=== PATIENT | male | born 1950 | race Caucasian/White ===

== ENCOUNTER → 2018-01-27 09:57 | Outpatient (CLI) | payer MEDICARE, OTHER, SELFPAY ==
--- NOTE | 2018-01-27 | DI.ECHO.S_ITS ---
[facility] +---------+ : : [address] : [place] : : : : [id number] : : : : Phone: [phone]---------+ Echocardiogram Report + + :Name: ARSENIO SOARES Study Date: 01/27/2018 Height: 72 in : :[facility] Weight: 250 lb: : Gender: Male BSA: 2.3 m2 : :: 1950 Age: 68 yrs : :Reason For Study: HTN : : Performed By: Indy Pan : :Referring: JEN RAY : + + Interpretation Summary The echocardiogram is within normal limits. Procedure: A two-dimensional transthoracic echocardiogram with color flow and Doppler was performed. The study quality was technically adequate. There is no prior echocardiogram noted for this patient. The heart rate ranged between 52-57 bpm during the study. Left Ventricle: The left ventricle is normal in size, wall thickness, and systolic function without any focal wall motion abnormalities. The ejection fraction is estimated to be 60-65%. Left ventricular wall motion is normal. Right Ventricle: The right ventricle is normal in size and function. Atria: The left atrium is mildly dilated. Right atrial size is normal. There is no Doppler evidence for an atrial septal defect. Mitral Valve: The mitral valve is normal in structure and function. There is trace mitral regurgitation. Aortic Valve: The aortic valve is normal in structure and function. Tricuspid Valve: The tricuspid valve is normal in structure and function. There is a trace or physiologic amount of tricuspid regurgitation. The right ventricular systolic pressure is estimated to be at least 27 mmHg based on an estimated right atrial pressure of 3 mm Hg. Pulmonic Valve: The pulmonic valve is not well seen, but is grossly normal. Great Vessels: The aortic root is normal size. The ascending aorta is at the upper limits of normal in size. The aortic arch is mildly enlarged. The pulmonary artery is normal size. The IVC is of normal diameter and collapses greater than 50% with a sniff. This suggests a low right atrial pressure of 3 mm Hg. Pericardium/ Pleura There is no pericardial effusion. There is no pleural effusion. MMode/2D Measurements & Calculations LVIDd: 4.9 cm LVOT diam: 2.3 cm LVIDs: 3.5 cm Ao root diam: 3.8 cm FS: 28.3 % asc Aorta Diam: 3.5 cm IVSd: 1.1 cm Ao Arch Diam (Prox Trans): 3.4 cm LVPWd: 1.0 cm LV dos santos. diameter/BSA (cm/m^2): 2.1 LV sys. diameter/BSA (cm/m^2): 1.5 LA A2 area: 24.9 cm2 RA long axis: 5.5 cm LA A4 area: 27.3 cm2 RA area: 20.6 cm2 LA length (vol): 6.6 cm RA vol: 65.8 ml LA vol: 88.1 ml RA : 28.1 ml/m2 LA vol index: 37.6 ml/m2 IVC diam: 2.0 cm RVD1 (basal): 3.4 cm TAPSE: 2.1 cm Doppler Measurements & Calculations Ao V2 max: 143.4 cm/sec LVOT Max Sergey: 121.0 cm/sec Ao V2 mean: 106.1 cm/sec LV V1 max P.9 mmHg Ao max P.2 mmHg LV V1 VTI: 27.5 cm Ao mean P.9 mmHg EDUARDA(I,D): 3.2 cm2 Ao V2 VTI: 34.1 cm EDUARDA(V,D): 3.4 cm2 sev ratio: 0.81 EDUARDA indexed to BSA (cm^2/m^2): 1.4 MV E max sergey: 76.8 cm/sec TR max sergey: 246.6 cm/sec MV A max sergey: 79.3 cm/sec TR max P.3 mmHg MV E/A: 0.97 Med Peak E' Sergey: 7.6 cm/sec E/E' med: 10.1 Lat Peak E' Sergey: 9.5 cm/sec E/E' lat: 8.1 E/e' average: 9.1 MV dec time: 0.23 sec Reading Physician:01:33 PM
== END ==
PROVIDERS: Family Provider Physician Assistant; PCP Physician Assistant; Visit Provider Physician Assistant
DX: I10 Essential (primary) hypertension (principal); E78.5 Hyperlipidemia, unspecified
CPT/HCPCS: 93306

== ENCOUNTER → 2019-06-16 13:07 | Outpatient (CLI) | payer MEDICARE, OTHER, SELFPAY ==
--- NOTE | 2019-06-16 | DI.RAD.S_ITS ---
PROCEDURE: XR CHEST 2V INDICATIONS: COUGH TECHNIQUE: 2 views of the chest were acquired. COMPARISON: None. FINDINGS: Surgical changes and devices: None. Lungs and pleura: Low lung volumes with scattered subsegmental atelectasis/scarring. No pleural effusions or pneumothorax. Mediastinum: Mediastinal contours are normal. Heart size is normal. Bones and chest wall: No suspicious bony abnormalities. Soft tissues appear unremarkable. IMPRESSION: Low lung volumes with scattered subsegmental atelectasis/scarring. No acute consolidation Dictated by: Jovanni Joya M.D. on 06/16/2019 at 14:44 Approved by: Jovanni Joya M.D. on 06/16/2019 at 14:45
== END ==
PROVIDERS: Family Provider Physician Assistant; PCP Physician Assistant; Referring Provider Physician Assistant; Visit Provider Physician Assistant
DX: R05 Cough (principal)
CPT/HCPCS: 71046

== ENCOUNTER → 2020-04-26 16:59 | Outpatient (CLI) | payer OTHER, MEDICARE, SELFPAY ==
[2020-04-26 19:07] LABS: Prostate Specific Antigen 2.29 ng/mL (0.10-4.00)
== END ==
PROVIDERS: Specialist; Family Provider Physician Assistant; PCP Family Medicine; Referring Provider Family Medicine; Visit Provider Family Medicine
DX: N40.1 Benign prostatic hyperplasia with lower urinary tract symptoms (principal); R97.20 Elevated prostate specific antigen [PSA]
CPT/HCPCS: 36415; 84153

== ENCOUNTER → 2021-03-11 13:09 | Outpatient (CLI) | payer OTHER, SELFPAY ==
[2021-03-11 15:24] LABS: Prostate Specific Antigen 3.21 ng/mL (0.10-4.00)
== END ==
PROVIDERS: Family Provider Physician Assistant; PCP Family Medicine; Referring Provider Specialist; Visit Provider Specialist
DX: R97.20 Elevated prostate specific antigen [PSA] (principal)
CPT/HCPCS: 36415; 84153

== ENCOUNTER → 2021-07-29 10:55 | Outpatient (CLI) | payer OTHER, SELFPAY ==
[2021-07-29 12:03] LABS: Add Manual Diff / Slide Review NO; Basophils Absolute Auto 0 /uL (0-100); Basophils Percent Auto 0.6 % (0-2); Eosinophils Absolute Auto 200 /uL (0-450); Eosinophils Percent Auto 3.9 % (2-4); Hematocrit 38.6 % (41-53); Hemoglobin 13.3 g/dL (13.5-17.5); Lymphocytes Absolute Auto 1300 /uL (1100-4500); Lymphocytes Percent Auto 28.6 % (25-40); Mean Corpuscular HGB Conc 34.4 % (30-36); Mean Corpuscular Hemoglobin 30.3 PG (26-34); Mean Corpuscular Volume 88.2 fL (80-100); Monocytes Absolute Auto 400 /uL (0-900); Monocytes Percent Auto 9.8 % (3-14); Neutrophils Absolute Auto 2600 /uL (1500-7000); Neutrophils Percent Auto 57.1 % (50-75); Platelet Count 194 X10^3/uL (150-400); Red Blood Cell Count 4.38 X10^6/uL (4.5-5.9); Red Cell Distribution Width 13.1 % (11.6-14.8); White Blood Cell Count 4.6 X10^3/uL (4.5-11.0)
[2021-07-29 12:56] LABS: Prostate Specific Antigen 2.85 ng/mL (0.10-4.00); Thyroid Stimulating Hormone 2.01 uIU/mL (0.47-4.68)
== END ==
PROVIDERS: Family Provider Physician Assistant; PCP Family Medicine; Visit Provider Specialist
DX: N40.1 Benign prostatic hyperplasia with lower urinary tract symptoms (principal); E03.9 Hypothyroidism, unspecified; R73.09 Other abnormal glucose; D64.9 Anemia, unspecified; N13.8 Other obstructive and reflux uropathy
CPT/HCPCS: 36415; 83036; 84153; 84443; 85025

== ENCOUNTER → 2022-01-08 09:19 | Outpatient (CLI) | payer OTHER, SELFPAY ==
--- NOTE | 2022-01-08 09:23 | DI.RAD.S_ITS ---
PROCEDURE: XR SHOULDER LT MIN 2V INDICATIONS: SHOULDER PAIN TECHNIQUE: 3 views of the shoulder were acquired. COMPARISON: None. FINDINGS: Bones: No acute fractures or dislocations. No suspicious bony lesions. Visualized ribs appear intact. Focal lucency at the greater tuberosity may be postsurgical in nature. Moderate degenerative changes are seen in the glenohumeral joint with inferior spurring. Possible prior acromioplasty without recurrent narrowing of the supraspinatus outlet. Soft tissues: No suspicious soft tissue calcifications. IMPRESSION: Moderate glenohumeral osteoarthrosis. No acute osseous abnormality. If the symptoms persist, consider cross sectional imaging such as MRI or CT for further assessment. Dictated by: Rigo Tavares M.D. on 01/08/2022 at 11:28 Approved by: Rigo Tavares M.D. on 01/08/2022 at 11:29
== END ==
PROVIDERS: Family Provider Physician Assistant; PCP Family Medicine; Referring Provider Nurse Practitioner Family; Visit Provider Nurse Practitioner Family
DX: M19.012 Primary osteoarthritis, left shoulder (principal); M25.512 Pain in left shoulder
CPT/HCPCS: 73030

== ENCOUNTER → 2022-05-01 16:22 | Outpatient (CLI) | payer OTHER, SELFPAY ==
--- NOTE | 2022-05-01 | DI.MRI.S_ITS ---
PROCEDURE: MR HEAD/BRAIN WO CON INDICATIONS: MIGRAINE TECHNIQUE: Non-contrast axial T1 spin echo, axial T2 fast spin echo, sagittal and axial FLAIR, coronal T2 fast spin echo, axial gradient echo, axial diffusion and ADC through the brain. COMPARISON: None. FINDINGS: Image quality: Excellent. CSF spaces: Ventricles appear symmetric in size and shape. Basal cisterns are patent. No extra-axial fluid collections. Brain: No intracranial bleeds or mass effects. There is cerebral volume loss for age. There are periventricular and deep white matter chronic small vessel ischemic changes. Brainstem appears normal. Diffusion-weighted images show no acute ischemic insults. No chronic ischemic insults. Normal intravascular flow voids are present. Skull and face: Calvarial bone marrow is normal in signal. Orbits are normal. Sinuses: Sinuses demonstrate mild pansinus mucosal thickening. No fluid levels. IMPRESSION: 1. No acute intracranial process. 2. Mild atrophy and chronic microvascular ischemic changes. 3. Pansinus mucosal thickening. Dictated by: Radha Castanon M.D. on 05/04/2022 at 11:49 Approved by: Radha Castanon M.D. on 05/04/2022 at 11:50
== END ==
PROVIDERS: Family Provider Physician Assistant; PCP Family Medicine; Referring Provider Nurse Practitioner Family; Visit Provider Nurse Practitioner Family
DX: G43.909 Migraine, unspecified, not intractable, without status migrainosus (principal)
CPT/HCPCS: 70551

== ENCOUNTER → 2022-09-22 16:53 | Outpatient (CLI) | payer OTHER, SELFPAY ==
[2022-09-22 18:13] LABS: Prostate Specific Antigen 2.23 ng/mL (0.10-4.00)
== END ==
PROVIDERS: Family Provider Physician Assistant; PCP Nurse Practitioner Family; Referring Provider Specialist; Visit Provider Specialist
DX: N40.1 Benign prostatic hyperplasia with lower urinary tract symptoms (principal); N13.8 Other obstructive and reflux uropathy
CPT/HCPCS: 36415; 84153

== ENCOUNTER → 2023-02-10 15:30 | Outpatient (CLI) | payer OTHER, SELFPAY ==
--- NOTE | 2023-02-10 15:34 | DI.RAD.S_ITS ---
PROCEDURE: XR HAND LT MIN 3V INDICATIONS: PAIN IN LT WRIST TECHNIQUE: 3 views of the hand(s) acquired. COMPARISON: None. FINDINGS: Bones: No fractures or dislocations. Mild degenerative changes of the interphalangeal joints and 1st CMC joint. Carpal bones are normally aligned. No suspicious bony lesions. Soft tissues: No suspicious soft tissue calcifications. IMPRESSION: Mild degenerative changes. No acute osseous abnormalities. Dictated by: Placido Beal M.D. on 02/10/2023 at 16:56 Approved by: Placido Beal M.D. on 02/10/2023 at 16:56
--- NOTE | 2023-02-10 15:34 | DI.RAD.S_ITS ---
PROCEDURE: XR WRIST LT MIN 3V INDICATIONS: PAIN IN LT WRIST TECHNIQUE: 4 views of the wrist were acquired. COMPARISON: None. FINDINGS: Bones: No fractures or dislocations. No suspicious bony lesions. Scaphoid view: No fracture. Soft tissues: No suspicious soft tissue calcifications. IMPRESSION: No acute osseous abnormality. If pain persists with conservative management, consider repeat x-ray in 10-14 days or cross-sectional imaging. Dictated by: Placido Beal M.D. on 02/10/2023 at 16:57 Approved by: Placido Beal M.D. on 02/10/2023 at 16:57
== END ==
PROVIDERS: Family Provider Physician Assistant; PCP Nurse Practitioner Family; Referring Provider Nurse Practitioner Family; Visit Provider Nurse Practitioner Family
DX: M25.532 Pain in left wrist (principal)
CPT/HCPCS: 73110; 73130

== ENCOUNTER 2023-08-05 09:34 | Day surgery (SDC) | payer OTHER, SELFPAY ==
[2023-07-29 08:36] VITALS: BMI 39.8
--- NOTE | 2023-08-05 09:38 | PM.HP.1 ---
History of Present Illness History of Present Illness Date Patient Seen: 08/05/23 Time Patient Seen: 10:00 Chief complaint: Left Carpal Tunnel Release Narrative: 73-year-old gentleman with left carpal tunnel that has been causing him pain and dysfunction for quite some time. Patient had EMG studies positive for carpal tunnel. Due to the continued symptoms, patient is interested in surgery [facility] Medical History HLD (hyperlipidemia) History of UTI BPH w urinary obs/LUTS Thyroid disease HTN (hypertension) Surgical History H/O hernia repair Social History marital status: household members: spouse Smoking Status: Never smoker alcohol intake: never caffeine: No Meds Home Medications and Allergies Home Medications Medication Instructions Recorded Confirmed Type atorvastatin 40 mg tablet 40 mg PO DAILY 04/30/20 08/05/23 History hydrocodone 5 mg-acetaminophen 300 1 tab PO BID PRN Nasal Congestion 04/30/20 08/05/23 History mg tablet tamsulosin 0.4 mg capsule 0.4 mg PO BEDTIME #90 caps 10/08/22 08/05/23 Rx Allergies Allergy/AdvReac Type Severity Reaction Status Date / Time losartan [From Cozaar] Allergy Severe drop in Verified 10/06/22 08:59 blood pressure Exam Narrative Exam Narrative: Positive signs of carpal tunnel on exam. Decreased sensation in the median nerve distribution. Positive Tinel's, Durkan's, Phalen's test. Full range of motion of the fingers. Assessment & Plan Assessment & Plan narrative: Patient with left carpal tunnel with positive exam and EMG findings. Based on this fact, patient is interested in surgical treatment. Fully understands the risks and limitations associated with the procedure. The risk, benefits, alternatives, possible complications, operative course, and postop outcomes were discussed. Complications including but not limiting to bleeding, infection, fracture, nerve injury, continued pain postoperatively or instability postoperatively were discussed in detail. Medical complications including but not limited to deep venous thrombosis event, anesthesia complications with excessive bleeding, vascular events or cardiac events and other possible complications were discussed in detail. Need for postoperative rehabilitation and anticipated hospital stay and clinical course were discussed in detail. Patient acknowledges understanding and elects to proceed with surgery.
[2023-08-05 09:44] VITALS: TEMP 36.4
[2023-08-05] MEDS: ACETAMINOPHEN 325 MG TABLET 975 MG PO (09:44)
--- NOTE | 2023-08-05 09:45 | PM.PREOP ---
Pre-operative Note Interval Note History & Physical reviewed/Exam performed by Physician: Yes Changes to H&P: No
[2023-08-05 09:47] VITALS: BP 147/75; PULSE 58; RESP 16; TEMP 36.2; O2SAT 95; BMI 39.8
[2023-08-05] MEDS: LACTATED RINGERS 1,000 ML 42 ML IV (09:47)
[2023-08-05] MEDS: CEFAZOLIN 2 GM/100 ML PREMIX 100 ML IV (10:15)
--- NOTE | 2023-08-05 10:24 | SUR.OPER ---
Supine on padded OR bed, head on pillow, arms secured on padded arm boards at <90 degrees abduction, legs uncrossed, safety belt at thigh, tape over blanket over lower legs. Pillow under knees, gel pad under heels.
[2023-08-05] MEDS: BUPIVACAINE 0.5% W/ EPI (PF) 30 ML VIAL INJ (10:30)
--- NOTE | 2023-08-05 10:34 | PM.OP.1 ---
Operative Date/Time/Diagnoses Date of procedure: 08/05/23 Time of procedure: 10:15 Pre-op diagnosis: Left carpal tunnel Post-op diagnosis: same Procedure & Clinicians Procedure: Left carpal tunnel release Same procedure as scheduled: Yes Indications: Left carpal tunnel Surgeon: Bronson Huerta Click Yes if Unassisted: Yes Anesthesia Type: Sedation and Local Operative Notes Findings: Compression of the median nerve at the left carpal tunnel Closure Type: primary Estimated Blood Loss (mL): 0 Tourniquet time (min): 10 Procedure in detail: On date of service, the patient was met in the holding area. Patients operative site was signed and witnessed by the OR staff. The surgery was once again discussed with the patient, and any remaining questions they had were answered fully. Patient was taken back to the operating theater and placed on the operating table in a supine position. Great care was taken to ensure that all bony prominences were carefully padded. A well-padded tourniquet was placed up along the upper extremity. A timeout was performed to verify patient's name, procedure, and operative site. The arm was then prepped and draped in the normal sterile fashion. A 15 blade was used to incise through skin In the center of the palm. Pickups and tenotomy scissors were used to dissect down until the palmar fascia was visualized. The palmar fascia was then sharply incised using a 15 blade. This gave us good visualization of the carpal ligament. A small opening was made into the carpal ligament, and a curved hemostat was placed into that opening. A 15 blade was then used to sharply incise the carpal ligament with the structures beneath being protected by the hemostat. Pickups and Metzenbaum scissors were used to complete the decompression both distally and proximally. This provided a complete decompression of the median nerve. The wound was then irrigated and closed with nylon. The hand was then cleaned, dried, and dressed. Patient was taken to the PACU in stable condition. Post-operative Condition: stable Disposition: PACU Plan for aftercare: Patient will follow our postoperative protocol for carpal tunnel release
[2023-08-05 10:41] VITALS: BP 133/78; PULSE 58; RESP 14; TEMP 36.1; O2SAT 94
[2023-08-05 10:44] VITALS: BP 120/78; PULSE 57; RESP 13; O2SAT 96
[2023-08-05 10:48] VITALS: BP 126/76; PULSE 54; RESP 13; O2SAT 96
[2023-08-05 10:54] VITALS: BP 139/74; PULSE 54; RESP 13; O2SAT 96
== END 2023-08-05 11:05 | disposition home or self-care (01) ==
PROVIDERS: Family Provider Physician Assistant; PCP Nurse Practitioner Family; Referring Provider Orthopaedic Surgery; Visit Provider Orthopaedic Surgery
PROC: (CPT 64721; principal; 2023-08-05 09:45)
DX: G56.02 Carpal tunnel syndrome, left upper limb (principal)
CPT/HCPCS: 64721; J0690; J2704

== ENCOUNTER → 2023-08-16 14:13 | Outpatient (CLI) | payer OTHER, SELFPAY ==
[2023-08-16 16:44] LABS: Prostate Specific Antigen 2.36 ng/mL (0.10-4.00)
== END ==
PROVIDERS: Family Provider Physician Assistant; PCP Nurse Practitioner Family; Referring Provider Specialist; Visit Provider Specialist
DX: R97.20 Elevated prostate specific antigen [PSA] (principal)
CPT/HCPCS: 84153

== ENCOUNTER 2024-09-25 12:18 | Emergency (ER) | payer OTHER, SELFPAY ==
[2024-09-25] VITALS (18 sets, daily range): BP systolic 108–138; BP diastolic 57–72; PULSE 54–65; RESP 11–27; TEMP 36.3–36.6; O2SAT 91–100; BMI 36.3
--- NOTE | 2024-09-25 12:42 | DI.RAD.S_ITS ---
PROCEDURE: XR CHEST 1V INDICATIONS: Chest Pain TECHNIQUE: One view of the chest was acquired. COMPARISON: [facility], CR, XR CHEST 2V, 06/16/2019, 13:58. FINDINGS: Surgical changes and devices: None. Lungs and pleura: Lungs are clear. No pleural effusions or pneumothorax. Mediastinum: Mediastinal contours appear normal. Heart size is normal. Bones and chest wall: No suspicious bony lesions. Overlying soft tissues appear unremarkable. IMPRESSION: No acute pulmonary process. Dictated by: Radha Castanon M.D. on 09/25/2024 at 13:11 Approved by: Radha Castanon M.D. on 09/25/2024 at 13:11
--- NOTE | 2024-09-25 12:52 | EKG_ITS ---
[address] [address] Test Date: 2024-09-25 Pat Name: Matthew aSntana Department: Room: Gender: Male [employer] Developer: RISSA : 1950 Requested By: Order Number: [id number] Reading MD: Felix Fuentes MD Measurements Intervals Velma Rate: 64 P: 14 OK: 166 QRS: -32 QRSD: 84 T: 12 QT: 406 QTc: 418 Interpretive Statements Normal sinus rhythm Left axis deviation Nonspecific ST abnormality NO PRIOR TRACING Electronically Signed On 09-25-2024 15:01:52 PDT by Felix Fuentes MD
[2024-09-25 13:07] LABS: Add Manual Diff / Slide Review NO; Basophils Absolute Auto 100 /uL (0-100); Basophils Percent Auto 0.8 % (0-2); Eosinophils Absolute Auto 100 /uL (0-450); Eosinophils Percent Auto 1.6 % (2-4); Hemoglobin 13.5 g/dL (13.5-17.5); Lymphocytes Absolute Auto 1500 /uL (1100-4500); Lymphocytes Percent Auto 23.3 % (25-40); Mean Corpuscular HGB Conc 34.5 % (30-36); Mean Corpuscular Hemoglobin 30.6 PG (26-34); Mean Corpuscular Volume 88.5 fL (80-100); Monocytes Absolute Auto 700 /uL (0-900); Monocytes Percent Auto 11.3 % (3-14); Neutrophils Absolute Auto 3900 /uL (1500-7000); Platelet Count 190 X10^3/uL (150-400); Red Blood Cell Count 4.41 X10^6/uL (4.5-5.9); Red Cell Distribution Width 13.3 % (11.6-14.8); White Blood Cell Count 6.2 X10^3/uL (4.5-11.0)
[2024-09-25 13:13] LABS: INR 1.1 (0.9-1.3); Prothrombin Time 12.8 SECONDS (9.4-12.5)
[2024-09-25 13:15] LABS: PTT Partial Thromboplastin Tim 34 SECONDS (25.1-36.5)
[2024-09-25 13:17] LABS: Alanine Aminotransferase 33 IU/L (<50); Albumin 4.5 g/dL (3.5-5.0); Albumin Globulin Ratio 1.3 (1.0-2.8); Alkaline Phosphatase 68 U/L (38-126); Aspartate Aminotransferase 37 IU/L (17-59); BUN Creatinine Ratio 23.2 (6-22); Blood Urea Nitrogen 26 mg/dL (9-20); Calcium 9.3 mg/dL (8.4-10.2); Carbon Dioxide 26 mmol/L (22-32); Chloride 103 mmol/L (98-107); Creatine Kinase 110 U/L (55-170); Estimated Glomerular Filt Rate > 60 mL/min (>60); Globulin 3.5 g/dL (1.7-4.1); Glucose 107 mg/dL (70-99); HEMOLYSIS < 15 (0-50); Lipase 61 U/L (23-300); Magnesium 2.1 mg/dL (1.6-2.3); Potassium 3.3 mmol/L (3.4-5.1); Sodium 138 mmol/L (137-145)
[2024-09-25 13:29] LABS: NT-proBNP (BNP-Adult 18+) 257 pg/mL (<125)
--- NOTE | 2024-09-25 13:55 | PC.NURSE ---
Critical lab Trop 0.129, Provider aware
[2024-09-25 13:56] LABS: Troponin I 0.129 ng/mL (0.01-0.034)
[2024-09-25] MEDS: ASPIRIN 81 MG CHEW TAB 324 MG PO (14:02)
--- NOTE | 2024-09-25 15:00 | EKG_ITS ---
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
--- NOTE | 2024-09-25 15:41 | ED_ITS ---
HPI - Dizziness General Chief Complaint: Dizziness Stated Complaint: Dizzy, Possible PTSD X 4 DAYS Time Seen by Provider: 09/25/24 15:06 Source: patient and family Mode of arrival: Ambulatory History of Present Illness HPI Narrative: 74-year-old male history of hypertension high cholesterol, PTSD and anxiety, presents to the emergency department for evaluation of anxiety. Patient reports he has had increased stress and had a panic attack last Wednesday that lasted for several hours. 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 He remarks ?I think it is finally catching up to me. ? He is not currently prescribed anything, has previously followed with Psychology but not on any chronic medications, has never been admitted to a psychiatric hospital. He does endorse feelings of depression but no SI. He tried taking an old Valium tablet which he had been prescribed in the past which did not help him much. On review of systems endorses some upper abdominal discomfort and frequent belching, nausea that has been transient. remarks that these are more chronic symptoms for him. He denies any chest pain or history of coronary artery disease. Denies shortness of breath Related Data Home Medications ?Medication ?Instructions ?Recorded ?Confirmed atorvastatin 40 mg tablet 40 mg PO DAILY 04/30/2009/10 Previous Rx's ?Medication ?Instructions ?Recorded hydrocodone 5 mg-acetaminophen 325 2 tab PO Q4-6H PRN pain #20 tabs 08/05/23 mg tablet tamsulosin 0.4 mg capsule 0.4 mg PO BEDTIME #90 caps 0 09/23/23 aspirin 81 mg capsule 81 mg PO DAILY #30 caps 09/10 10/04 lorazepam 1 mg tablet (Ativan) 1 mg PO TID PRN anxiety #10 tabs 09/25/24 lorazepam 1 mg tablet 1 mg PO TID PRN anxiety #14 tabs 09/26/24 Allergies Allergy/AdvReac Type Severity Reaction Status Date / Time losartan (From Cozaar) AdvReac Severe drop in Verified 09/25/24 12:31 blood pressure Review of Systems Review of Systems Narrative: Pertinent ROS obtained and negative except as stated in HPI Patient History Medical History HLD (hyperlipidemia) History of UTI BPH w urinary obs/LUTS Thyroid disease HTN (hypertension) Surgical History H/O hernia repair Social History marital status: household members: spouse Smoking Status: Former smoker alcohol intake: never caffeine: No Smoking Status: Former smoker Exam Initial Vital Signs Initial Vital Signs: Vital Signs Temperature 97.3 F L 09/25/24 12:31 Pulse Rate 65 09/25/24 12:31 Respiratory Rate 18 09/25/24 12:31 Blood Pressure 138/67 09/25/24 12:31 Pulse Oximetry 96 09/25/24 12:31 Oxygen Delivery Method Room Air 09/25/24 12:31 Constitutional: Well appearing, no acute distress Head: NCAT Cardiovascular: RRR, no murmur or rub Pulmonary: CTA bilaterally, no respiratory distress Abdominal: soft, tender in RUQ, negative Bowden's Extremities: No LE edema Skin: warm and dry, no diaphoresis Neurological: Alert and oriented x3 Psych: Endorses anxiety, 8/10 at this time Course Orders Ordered: Discontinued Medications Al Hydrox/Mg Hydrox/Simethicone (Mag Hydrox/Alum/Simeth 30 Ml Udc) 30 ml PO NOW ONE Stop: 09/25/24 15:58 Last Admin: 09/25/24 16:33 Dose: 30 ml Documented By: ELLE Aspirin (Aspirin 81 Mg Chew Tab) 324 mg PO NOW ONE Stop: 09/25/24 12:43 Last Admin: 09/25/24 14:02 Dose: 324 mg Documented By: ELLE Famotidine (Famotidine 20 Mg Tablet) 20 mg PO NOW ONE Stop: 09/25/24 16:31 Last Admin: 09/25/24 16:33 Dose: 20 mg Documented By: LM Lorazepam (Lorazepam 0.5 Mg Tablet) 1 mg PO NOW ONE Stop: 09/25/24 15:56 Last Admin: 09/25/24 16:33 Dose: 1 mg Documented By: LM Ondansetron HCl (Ondansetron 4 Mg/2 Ml Inj) 4 mg IV NOW ONE Stop: 09/25/24 15:58 Last Admin: 09/25/24 16:33 Dose: 4 mg Documented By: LM Vital Signs Vital signs: Vital Signs - 8 hr 09/25/24 12:31 09/25/24 12:56 09/25/24 12:57 Temperature 97.3 F L Pulse Rate 65 64 Respiratory Rate 18 Blood Pressure 138/67 127/72 Pulse Oximetry 96 100 Oxygen Delivery Method Room Air 09/25/24 12:57 09/25/24 13:00 09/25/24 13:00 Temperature Pulse Rate 64 60 Respiratory Rate 16 Blood Pressure 129/71 Pulse Oximetry 95 94 Oxygen Delivery Method 09/25/24 13:30 09/25/24 13:30 09/25/24 13:59 Temperature Pulse Rate 57 L 58 L Respiratory Rate 11 L 17 Blood Pressure 125/68 Pulse Oximetry 94 93 Oxygen Delivery Method 09/25/24 14:00 09/25/24 14:00 09/25/24 14:30 Temperature Pulse Rate 57 L Respiratory Rate 16 Blood Pressure 122/69 124/67 Pulse Oximetry 91 Oxygen Delivery Method 09/25/24 14:30 09/25/24 15:00 09/25/24 15:00 Temperature Pulse Rate 59 L 58 L Respiratory Rate 12 12 Blood Pressure 125/68 Pulse Oximetry 95 93 Oxygen Delivery Method 09/25/24 15:30 09/25/24 15:30 09/25/24 16:00 Temperature Pulse Rate 60 Respiratory Rate 27 H Blood Pressure 108/66 111/63 Pulse Oximetry 94 Oxygen Delivery Method 09/25/24 16:00 09/25/24 16:30 09/25/24 16:30 Temperature Pulse Rate 56 L 61 Respiratory Rate 17 17 Blood Pressure 122/65 Pulse Oximetry 94 94 Oxygen Delivery Method 09/25/24 17:00 09/25/24 17:00 Temperature Pulse Rate 61 Respiratory Rate 15 Blood Pressure 124/71 Pulse Oximetry 94 Oxygen Delivery Method MDM - Dizziness Lab Data 09/25/24 12:54 09/25/24 12:54 Labs: Lab Results 09/25/24 09/25/24 09/25/24 Range/Units 12:54 15:22 18:15 WBC 6.2 (4.5-11.0) X10^3/uL RBC 4.41 L (4.5-5.9) X10^6/uL Hgb 13.5 (13.5-17.5) g/dL Hct 39.0 L (41-53) % MCV 88.5 (80-100) fL MCH 30.6 (26-34) PG MCHC 34.5 (30-36) % RDW 13.3 (11.6-14.8) % Plt Count 190 (150-400) X10^3/uL Neut % (Auto) 63.0 (50-75) % Lymph % (Auto) 23.3 L (25-40) % Dale % (Auto) 11.3 (3-14) % Eos % (Auto) 1.6 L (2-4) % Baso % (Auto) 0.8 (0-2) % Neut # (Auto) 3900 (4083-6652) /uL Lymph # (Auto) 1500 (6873-5998) /uL Dale # (Auto) 700 (0-900) /uL Eos # (Auto) 100 (0-450) /uL Baso # (Auto) 100 (0-100) /uL PT 12.8 H (9.4-12.5) SECONDS INR 1.1 (0.9-1.3) APTT 34 (25.1-36.5) SECONDS Sodium 138 (137-145) mmol/L Potassium 3.3 L (3.4-5.1) mmol/L Chloride 103 (98-107) mmol/L Carbon Dioxide 26 (22-32) mmol/L BUN 26 H (9-20) mg/dL Creatinine 1.12 (0.66-1.25) mg/dL Estimated GFR > 60 (>60) mL/min BUN/Creatinine Ratio 23.2 H (6-22) Glucose 107 H (70-99) mg/dL Calcium 9.3 (8.4-10.2) mg/dL Magnesium 2.1 (1.6-2.3) mg/dL Total Bilirubin 1.0 (0.2-1.3) mg/dL AST 37 (17-59) IU/L ALT 33 (<50) IU/L Alkaline Phosphatase 68 (38-126) U/L Total Creatine Kinase 110 (55-170) U/L Troponin I 0.129 H* 0.108 H 0.089 H (0.01-0.034) ng/mL NT-Pro-B Natriuret Pep 257 H (<125) pg/mL Total Protein 8.0 (6.3-8.2) g/dL Albumin 4.5 (3.5-5.0) g/dL Globulin 3.5 (1.7-4.1) g/dL Albumin/Globulin Ratio 1.3 (1.0-2.8) Lipase 61 (23-300) U/L MDM Narrative Medical decision making narrative: In brief, this is a 74-year-old male who presents for concerns related to anxiety and PTSD, has been unusually severe over the last few days, he remarks? it is finally catching up to me. ? He is not currently following with a mental health professional but has historically had an old Valium tablet that he tried today without relief. On review of systems does endorse some dyspepsia and upper abdominal discomfort but denies any chest pain or history of coronary artery disease In chart review: I see patient has history of BPH and history of UTI. No other medical records to review On arrival to the emergency department, the patient is in no acute distress. Exam is pertinent for: Right upper quadrant discomfort without guarding or rebound, negative Bowden's Differential diagnoses considered but not limited to: Biliary colic, cholecystitis, PTSD and anxiety, depression, atypical ACS Initial treatment plan includes: Medical screening exam and clearance with laboratories, did offer oral ativan for anxiety EKG 15 17 sinus bradycardia rate of 58, normal intervals OH 182, QRS 92, QTC 416, normal axis Laboratories pertinent for: No leukocytosis no anemia. There is slight troponin elevation initially 0.129, normal lipase, normal LFTs, normal bilirubin. Potassium borderline low at 3.3. Urinalysis no infection. Imaging pertinent for: Single view chest x-ray within normal limits. Abdominal ultrasound is ordered and pending. 3rd troponin is being drawn at 1810. 1900: troponins are downtrending. Patient is not expressing any chest pain at this time. Medical social work was able to meet with the patient and provide resources. On reassessment at 1908 the patient is feeling much better. He reports his anxiety is essentially resolved. He reports his discussions with the clinical social work therapist went very well and he was provided with multiple ?leads? on outpatient resources. He says that his upper abdominal discomfort is completely resolved after GI cocktail. He continues to deny any chest pain. GB US shows mild hepatomegaly/severe FL, GB WNL Heart score is 6 given his risk factors in troponin elevations initially all the are downtrending (0.129-->0.108-->0.089). We talked extensively regarding possible causes of ST elevation such as uncontrolled hypertension, ACS. With his moderate risk heart score I did offer admission or transfer for cardiac evaluation but he says that he would not want to be admitted at this time. We talked extensively regarding signs symptoms of acute coronary syndrome and reasons to return. Encouraged him to call PCP tomorrow to arrange for a stress echo Return precautions discussed and provided prior to discharge Pertinent scoring tools used to guide clinical decision making, if applicable: HEART Score for Major Cardiac Events from [email or web address] on 09/25/2024 All calculations should be rechecked by clinician prior to use RESULT SUMMARY: 6 points Moderate Score (4-6 points) Risk of MACE of 12-16.6%. If troponin is positive, many experts recommend further workup and admission even with a low HEART Score. INPUTS: History ?> 0 = Slightly suspicious EKG ?> 0 = Normal Age ?> 2 = >=5 Risk factors ?> 2 = >= risk factors or history of atherosclerotic disease Initial troponin ?> 2 = >3? normal limit Discharge Plan Departure Patient Disposition: Home Clinical Impression: Dyspepsia, Anxiety, Elevated troponin Activity Restrictions/Additional Instructions: I am glad that you are feeling better and that you were able to meet with our clinical social work therapist who could provide you with resources regarding your PTSD and anxiety. As we discussed I am happy to prescribe you a short course of oral Ativan to use at home for severe anxiety. Please note that this is not a good long-term solution. This medication can be addictive and is not first-line treatment for anxiety. Your mental health professional may want to start medication such as SSRI but this will require potentially dose adjustments and close follow up to ensure you are tolerating it well. As we discussed, DO NOT take Ativan combine with your [place] pain medication. It is dangerous to combine these medications as it can cause to over-sedation, respiratory depression and . Please try to use Ativan sparingly and only for severe anxiety. Your laboratories today were generally stable although you were noted to have an elevated troponin level. This can be associated with coronary artery disease and heart attack. Given we are not in many you to the hospital for further workup, it is very important that you call your family doctor to seek referral for stress echocardiogram. In the meantime, please take a daily baby aspirin 81 mg and continue to take your cholesterol medication. Return to the emergency department for persistent or developing chest pain, particularly chest pain that is associated with nausea or sweats, shortness of breath, or radiates to the jaw or shoulder. Your upper abdominal discomfort alternatively maybe related to your hiatal hernia or acid reflux. I recommend taking antacid daily such as Pepcid daily. Please follow-up with your family doctor regarding your ED visit today. Prescriptions: New lorazepam [Ativan] 1 mg tablet 1 mg PO TID PRN (Reason: anxiety) Qty: 10 0RF aspirin 81 mg capsule 81 mg PO DAILY Qty: 30 0RF lorazepam 1 mg tablet 1 mg PO TID PRN (Reason: anxiety) Qty: 14 0RF No Action hydrocodone-acetaminophen 5-325 mg tablet 2 tab PO Q4-6H PRN (Reason: pain) Qty: 20 0RF atorvastatin 40 mg tablet 40 mg PO DAILY tamsulosin 0.4 mg capsule 0.4 mg PO BEDTIME Qty: 90 3RF Referrals: Leigh Purvis ARNP [Primary Care Provider, Nursing] Stand Alone Forms: Patient Portal/API
[2024-09-25 15:51] LABS: Troponin I 0.108 ng/mL (0.01-0.034)
--- NOTE | 2024-09-25 15:57 | DI.US.S_ITS ---
PROCEDURE: US ABDOMEN LIMITED INDICATIONS: ruq pain TECHNIQUE: Real-time scanning was performed of the abdominal and retroperitoneal organs, with image documentation. COMPARISON: None. FINDINGS: Liver: Liver is enlarged measuring 19.4 cm with steatosis. Gallbladder: No gallstones. No wall thickening. No pericholecystic edema. Negative sonographic Bowden's sign. Biliary ducts: Intrahepatic bile ducts are non-dilated. Extrahepatic bile duct caliber measures 4.6 mm. Normal is 6-7 mm or less in diameter, or 10 mm or less post-cholecystectomy. Pancreas: Not well seen. Miscellaneous: No free abdominal fluid. IMPRESSION: Hepatomegaly with steatosis. Dictated by: Radha Castanon M.D. on 09/25/2024 at 17:00 Approved by: Radha Castanon M.D. on 09/25/2024 at 17:00
[2024-09-25] MEDS: ONDANSETRON 4 MG/2 ML INJ IV (16:33)
[2024-09-25] MEDS: LORazepam 0.5 MG TABLET 1 MG PO (16:33)
[2024-09-25] MEDS: FAMOTIDINE 20 MG TABLET PO (16:33)
[2024-09-25] MEDS: MAG HYDROX/ALUM/SIMETH 30 ML UDC PO (16:33)
--- NOTE | 2024-09-25 17:02 | CM.SWNOTE ---
ED FLAG FOOTBALL COACH Assessment Note: Pt is a 74yo male, resident of [place], is seen in the ED for dizziness, uncontrollable shaking and possible symptoms related to PTSD. Pt lives in a house with his , Arabella. Pt's Primary Care Provider is ASHANTI Le at [facility] and insurance is [facility]. Reviewed chart and discussed with multidisciplinary team pt's medical status and initial discharge needs. FLAG FOOTBALL COACH entered room to meet with patient, introduced self and role. Present in the room is pt's , Arabella. They both explained pt's recent mood swings and agoraphobia, state that pt is [facility] ([facility] and has a known PTSD diagnosis due to his service time during the [place] War. Patient denies having a psych provider or MH counselor and is hopeful to have one again. Pt denies SI/HI, denies hallucinations. FLAG FOOTBALL COACH provided printed [facility] specific MH resources and contact information for pt to establish MH care. At this time, it is the opinion of this FLAG FOOTBALL COACH that patient would benefit from outpatient MH treatment for PTSD and close follow up with PCP. Pt agreeable to this plan and contracts for safety. FLAG FOOTBALL COACH reviews this with ED provider Dr. Clayton who indicates agreement and understanding. FLAG FOOTBALL COACH placed referral to [facility] via webform on pt's behalf. Provided their contact information. FLAG FOOTBALL COACH attempted to call pt's PCP for follow up, could not leave a voice message after business hours. Pt understands to call to make ED follow up appt. Plan: Pt to discharge home with , follow with [facility] resources provided as well as referral made with [facility] for psych medication management. VERÓNICA Cates
--- NOTE | 2024-09-25 18:01 | PC.NURSE ---
Pt resting on stretcher, RA, NAD, A&Ox4, breathing even/equal/unlabored. Pt denies CP/SOB at this time. Call light within reach, no other needs at this time
--- NOTE | 2024-09-25 18:15 | EKG_ITS ---
[address] [address] Test Date: 2024-09-25 Pat Name: Matthew Santana Department: 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
[2024-09-25 18:49] LABS: Troponin I 0.089 ng/mL (0.01-0.034)
== END 2024-09-25 20:14 | disposition home or self-care (01) ==
PROVIDERS: Emergency Provider Student in an Organized Health Care Education/Training Program; Family Provider Physician Assistant; PCP Nurse Practitioner Family
DX: R10.13 Epigastric pain (principal); F41.9 Anxiety disorder, unspecified; R79.89 Other specified abnormal findings of blood chemistry
CPT/HCPCS: 36415; 71045; 76705; 80053; 82550; 83690; 83735; 83880; 84484; 85025; 85610; 85730; 93005; 93010; 96374; 99284; A9270; J2405